=== PATIENT | female | born 1960 | race Caucasian/White ===

== ENCOUNTER 2017-03-11 01:50 | Observation (INO) | payer OTHER ==
[~2017-03-11] VITALS: Ht 162.6 cm; Wt 85.7 kg
--- NOTE | ~2017-03-11 | HP ---
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 She was transferred from another hospital, brought to [place], asked to see for a foreign body removal. PAST SURGICAL HISTORY: Include cholecystectomy, hysterectomy. PAST MEDICAL HISTORY: Include hypertension, seasonal allergies. ALLERGIES: SHE HAS NO KNOWN DRUG ALLERGIES. SOCIAL HISTORY: She is a nondrinker and nonsmoker. MEDICATIONS: Include an antihypertensive and an allergy med, which she could not name the names of for me. FAMILY HISTORY: Noncontributory. REVIEW OF SYSTEMS: Denies headaches, chest pain or shortness of breath. She has had the trouble swallowing her saliva. No extremity complaints. No hematologic, neurologic, or psychiatric issues. PHYSICAL EXAMINATION: GENERAL: She is afebrile. VITAL SIGNS: Stable. HEART: Regular. LUNGS: Clear. ABDOMEN: Soft, nondistended, nontender. EXTREMITIES: No peripheral edema. No focal neurologic deficits. ASSESSMENT AND PLAN: The patient is a 56-year-old with esophageal food and foreign body. Our plan is for EGD, foreign body removal, possible balloon dilatation. Risks and benefits were discussed. Chas Venegas MD/ isabel JOB #: [id number] CC: Chas Venegas, Attending Physician Soren Márquez, Family Physician
[2017-03-15] MEDS ORDERED: ZOCOR DPS40 MG PO (11:21)
[2017-03-15] MEDS ORDERED: THERA1 EACH PO (11:22)
[2017-03-15] MEDS ORDERED: METOPROLOL TART25 MG PO (11:22)
[2017-03-15] MEDS ORDERED: APRODINE TABLE1 EACH PO (11:22)
[2017-03-15] MEDS ORDERED: PRILOSEC DPS20 MG PO (11:23)
[2017-03-15] MEDS ORDERED: AMOX TR-K CLV1 EAC4 PO (11:23)
[2017-03-15] MEDS ORDERED: NORCO 5-325 TA1 EACH PO (11:23)
--- NOTE | 2017-03-18 18:47 | ER ---
ADMIT: 03/11/2017 RM/LOC: ER [facility] MR#: [id number] [address] [address] KARI MCCOY [address] [place] [address] Emergency Room Report SEX: F AGE: 56 : 1960 DATE: 03/11/2017 HISTORY OF PRESENT ILLNESS: The patient is a 56-year-old female with past medical history of hypertension, came to the ER with chief complaint of food impaction. The patient states at 9:00 p.m., she was eating food, meatballs, then she felt that the food is stuck in her throat. The patient states she was not able to eat or drink after that and she would throw up solid or liquid. The patient states she had similar episodes in the past, but they all resolved by itself. The patient was transferred from another facility. At that facility, they tried glucagon which did not help the patient. The patient states she still has difficulty swallowing solid or liquid. PHYSICAL EXAMINATION: GENERAL: In the ER, the patient was sitting in bed and while at rest, she was in no discomfort, no drooling, no respiratory distress. The patient can protect airways. HEENT/NECK: Trachea midline. I could not see any abnormality in the oropharynx. CHEST: Clear bilaterally breath sounds. HEART: Normal S1, S2 without any murmurs. ABDOMEN: Soft, normal range of motion. EXTREMITIES: Without any other pain. The rest of the physical exam is noncontributory. CT of the chest was positive for food impaction, esophageal food bolus. General Surgery was contacted, and the patient was admitted for further followups and treatments and possible EGD per their discretion. At this stage, the patient is in no respiratory distress and can easily protect airways. Soren Colón MD/ modl JOB #: [id number] CC: Soren Colón MD, Attending Physician Soren Márquez MD, Family Physician
--- NOTE | 2017-03-20 10:26 | OR ---
ADMIT: 03/11/2017 RM/LOC: [facility] MR#: [id number] [address] [address] KARI MCCOY [address] [address] [place] [address] Operative/Delivery Room Report SEX: F AGE: 56 : 1960 SURGERY DATE: 03/11/2017 SURGEON: Chas Venegas MD PREPROCEDURE DIAGNOSIS: Long-term dysphagia with esophageal food, foreign body. POSTPROCEDURE DIAGNOSIS: Distal esophagitis with distal esophageal stricture. PROCEDURE: EGD, foreign body removal. INDICATIONS: The patient is an obese, 56-year-old with esophageal food, foreign body with long-term dysphagia complaints, who presents for EGD evaluation. FINDINGS: The patient was taken to the endoscopy suite, IV sedation was given. She was placed in left lateral decubitus position. A bite-block was placed to the patient's mouth. The gastroscope was introduced down the oropharynx, down the esophagus where we suctioned out some saliva. There was a large amount of meat in the distal esophagus. We very carefully and gently were able to advance the gastroscope beside the esophageal wall and food bolus until we entered into the stomach, which stented the GE junction and the food dumped into the stomach. I placed the gastroscope through the widely patent pylorus into the duodenum which appeared normal. The stomach appeared normal. On retroflexion view, there was a small hiatal hernia. Again, I reexamined the GE junction, there was evidence of esophagitis, a distal esophageal stricture, and there was a small amount of distal esophageal mucosal splitting and a mild amount of bleeding. The remainder of the upper esophagus was normal. The gastroscope was removed. The patient tolerated the procedure well without difficulty, transferred to recovery in good condition. Chas Venegas MD/ isabel JOB #: [id number] CC: Chas Venegas, Attending Physician Soren Márquez, Family Physician
--- NOTE | 2017-04-27 08:58 | DS ---
ADMIT: 03/11/2017 RM/LOC: 630 [facility] MR#: [id number] [address] [address] KARI MCCOY [address] [address] [place] [address] Discharge Summary SEX: F AGE: 56 : 1960 ADMISSION DATE: 03/11/2017 DISCHARGE DATE: 03/13/2017 ADMITTING DIAGNOSIS: Long-term dysphagia with esophageal food foreign body. DISMISSAL DIAGNOSES: 1. Distal esophagitis with distal esophageal stricture. 2. Hypertension. 3. Seasonal allergies. 4. Previous cholecystectomy. 5. Previous hysterectomy. PROCEDURES: 1. EGD (esophagogastroduodenoscopy). 2. Foreign body removal. HOSPITAL COURSE: The patient was admitted through the ER and was an observation admit with routine med/surg orders. She was quickly changed to an inpatient status. She was given a morphine HEALTHCARE EDUCATOR for pain control and was started on IV antibiotics. She was also started on a proton pump inhibitor given her admitting symptoms. The patient recovered well while in the hospital. She tolerated a full diet and had normal bowel function. Her IV antibiotics were switched to orals and her vitals remained stable. She continued to recover well and was able to discharge to home on 03/13/2017. DISCHARGE INSTRUCTIONS: 1. Soft diet for one week and then advance as tolerated. 2. Follow up with Dr. Venegas on March 30. DISCHARGE MEDICATIONS: 1. Simvastatin 40 mg daily. 2. Aprodine daily. 3. Metoprolol tartrate 25 mg b.i.d. 4. Multivitamin daily. 5. Augmentin 875 mg b.i.d. 6. Prilosec 20 mg twice daily. 7. [place] 5/325 q.6h p.r.n. FREDI Rock / Chas Venegas MD / maryse JOB #: [id number] CC: Chas Venegas MD, Attending Physician Soren Márquez MD, Family Physician
== END 2017-03-13 18:50 | disposition home or self-care (01) ==
LOC: ER 01:50 → SSS 05:48 → 6PED 12:00
PROVIDERS: ADMIT Surgery
PROC: 0DC38ZZ Extirpation of Matter from Lower Esophagus, Via Natural or Artificial Opening Endoscopic (ICD-10-PCS; principal; 2017-03-11)
DX: T18.128A Food in esophagus causing other injury, initial encounter (principal); K22.2 Esophageal obstruction; I10 Essential (primary) hypertension; Z79.899 Other long term (current) drug therapy; Z90.49 Acquired absence of other specified parts of digestive tract; Z90.710 Acquired absence of both cervix and uterus